=== PATIENT | female | born 1960 | race Two or more races ===

== ENCOUNTER → 2025-06-29 | Outpatient (CLI) | payer MEDICARE, MEDICAID, SELFPAY ==
--- NOTE | 2025-06-29 16:20 | EKG_ITS ---
[facility] Test Date: 2025-06-29 Pat Name: ÁNGEL LOOMIS Department: Room: - Gender: Female [employer]il [employer]ologist: SHELDON : 1960 Requested By: Abdelrahman Cobian (PCP) Order Number: [id number] Reading MD: Abdelrahman Cobian (PCP) Measurements Intervals [place] Rate: 66 P: 43 ND: 123 QRS: -27 QRSD: 111 T: -7 QT: 375 QTc: 393 Interpretive Statements SINUS RHYTHM BORDERLINE LEFT AXIS DEVIATION [QRS AXIS < -20] LOW QRS VOLTAGE IN PRECORDIAL LEADS [QRS DEFLECTION < 1.0 mV IN CHEST LEADS] PATTERN CONSISTENT WITH PULMONARY DISEASE INCOMPLETE RIGHT BUNDLE BRANCH BLOCK [90+ ms QRS DURATION, TERMINAL R IN V1/V2, 40+ ms S IN I/aVL/V4/V5/V6] No previous ECG available for comparison /[email or web address]/[id number]
== END | disposition home or self-care (01) ==
LOC: SDIM 16:04
PROVIDERS: PCP Family Medicine; Referring Provider Family Medicine; Visit Provider Family Medicine
DX: R07.9 Chest pain, unspecified (principal); R00.2 Palpitations
CPT/HCPCS: 93005